=== PATIENT | male | born 1960 | race Caucasian/White ===

== ENCOUNTER 2018-10-21 05:52 | Emergency (ER) | payer OTHER ==
[~2018-10-21] VITALS: Ht 172.7 cm; Wt 83.9 kg
[2018-10-21 06:09] VITALS: BP 165/83
[2018-10-21] MEDS ORDERED: ACYC800T PO (06:27)
[2018-10-21] MEDS ORDERED: PRED-220 PO (06:27)
[2018-10-21] MEDS ORDERED: CEPH500T PO (06:27)
[2018-10-21] MEDS ORDERED: TETRACAINE 0.5% OPHTH SOLUTION 4ML BOTTLE. OS ONE (06:30)
[2018-10-21] MEDS ORDERED: PROPARACAINE/FLUORESCEIN 0.5 ML OPHTH DROPS. OS ONE (06:30)
--- NOTE | 2018-10-21 07:41 | PHYS DOC ---
Past Medical History Past Medical History: COPD, High Cholesterol, Hypertension Past Surgical History: Appendectomy, Cholecystectomy Additional Past Surgical Histo: PILONDIAL CYST DRAINED Alcohol Use: Occasionally Drug Use: None Adult General Chief Complaint Chief Complaint: EYE PROBLEMS HPI HPI Patient is a 58 year old m p/w rash itchy painful to left upper eyelid. no changes in vision. thought something bit him itchier now though up to and on top of scalp. also notes swelling anterior to the left ear. Review of Systems Review of Systems Constitutional: Denies fever or chills [] Eyes: HENT: Denies nasal congestion or sore throat [] Respiratory: Denies cough or shortness of breath [] Cardiovascular: No additional information not addressed in HPI [] Integument: Neurologic: Denies headache, focal weakness or sensory changes [] Endocrine: Denies polyuria or polydipsia [] All other systems were reviewed and found to be within normal limits, except as documented in this note. Current Medications Current Medications Current Medications Medications (Trade) Dose Ordered Sig/Jacque Start Time Stop Time Status Last Admin Dose Admin Proparacaine HCl/ Fluorescein Sodium (Flucaine Eye Drops) 1 drop 1X ONCE 10/21/18 06:30 10/21/18 06:31 DC 10/21/18 06:30 1 DROP Tetracaine HCl (Tetracaine) 1 drop 1X ONCE 10/21/18 06:30 10/21/18 06:31 DC Allergies Allergies Allergies Coded Allergies Type Severity Reaction Last Updated Verified niacin Allergy Unknown 10/21/18 Yes Physical Exam Physical Exam Constitutional: Well developed, well nourished, no acute distress, non-toxic appearance. [] HENT: Normocephalic, atraumatic, bilateral external ears normal, oropharynx moist, no oral exudates, nose normal. [] Eyes: there is erythema forehead up to anterior scalp, occasional skin lesion suggestive of early vesicle including on eyelid. no bryant sign see [facility] for [facility]. pt reports no changes corneal staining normal there is no dendrites Neck: Normal range of motion, no tenderness, supple, no stridor. [] Pulmonary: Normal respiratory effort no increased work of breathing no obvious chest wall trauma Skin: erythema, occasional early possible vesicles. from the eyelid up to the forehead. Extremities: No tenderness, no cyanosis, no clubbing, ROM intact, no edema. [] Neurologic: Alert and oriented X 3, normal motor function, normal sensory function, no focal deficits noted. [] Psychologic: Affect normal, judgement normal, mood normal. [] Current Patient Data Vital Signs Vital Signs Date Time Temp Pulse Resp B/P (MAP) Pulse Ox O2 Delivery O2 Flow Rate FiO2 10/21/18 06:09 98.1 75 18 165/83 (110) 96 Room Air 98.1 EKG EKG [] Radiology/Procedures Radiology/Procedures [] Course & Med Decision Making Course & Med Decision Making Pertinent Labs and Imaging studies reviewed. (See chart for details) [] Dragon Disclaimer Dragon Disclaimer This electronic medical record was generated, in whole or in part, using a voice recognition dictation system. Departure Departure Impression: Primary Impression: Elevated blood pressure reading Additional Impression: Shingles Disposition: HOME, SELF-CARE Condition: STABLE Patient Instructions: Shingles, [id number] Additional Instructions: You need to see an eye doctor within 3-5 days sooner should the lesions get worse check blood pressure within 1 month Scripts Cephalexin (CEPHALEXIN) 500 Mg Tablet 1 TAB PO TID, #30 TAB Prov: NELL SCOTT MD 10/21/18 Prednisone (PREDNISONE ) 10 Mg Tablet 10 MG PO UD for PREDNISONE TAPER, #39 TAB 0 Refills Take 3 tablets by mouth twice a day for 3 days, then take 2 tablets by mouth twice a day for 3 days, then take 1 tablet by mouth twice a day for 3 days, then take 1 tablet by mouth daily x 3 days, then stop. Prov: NELL SCOTT MD 10/21/18 Acyclovir (ACYCLOVIR) 800 Mg Tablet 1 TAB PO 5XDAY, #50 TAB Prov: NELL SCOTT MD 10/21/18 Problem Qualifiers NELL SCOTT MD Oct 21, 2018 07:41
== END 2018-10-21 06:48 | disposition home or self-care (01) ==
LOC: ER 05:52
DX: B02.30 Zoster ocular disease, unspecified (principal); I10 Essential (primary) hypertension; E78.00 Pure hypercholesterolemia, unspecified; J44.9 Chronic obstructive pulmonary disease, unspecified; Z88.8 Allergy status to other drugs, medicaments and biological substances
CPT/HCPCS: 99283